=== PATIENT | male | born 1980 | race Caucasian/White ===

== ENCOUNTER 2020-09-05 15:36 | Emergency (ER) | payer BC, OTHER ==
[2020-09-05 16:00] VITALS: BP 128/86; PULSE 88; RESP 18
--- NOTE | 2020-09-05 16:33 | XR ---
EXAMINATION TYPE: XR chest 2V DATE OF EXAM: 09/05/2020 COMPARISON: None INDICATION: Left-sided rib pain TECHNIQUE: Frontal and lateral views of the chest are obtained. FINDINGS: The heart size is normal. The pulmonary vasculature is normal. Very minimal atelectasis may be the costophrenic angle. Lungs otherwise appear clear.. No pneumothor ax is evident. No displaced rib fractures are evident. IMPRESSION: 1. Suggestion of minimal left costophrenic angle atelectasis.
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
== END 2020-09-05 17:00 | disposition home or self-care (01) ==
LOC: EC 15:36
DX: S20.212A Contusion of left front wall of thorax, initial encounter (principal); M94.0 Chondrocostal junction syndrome [Tietze]; V39.40XA Driver of three-wheeled motor vehicle injured in collision with unspecified motor vehicles in traffic accident, initial encounter; Y92.410 Unspecified street and highway as the place of occurrence of the external cause
CPT/HCPCS: 71046; 93005; 99284

== ENCOUNTER 2022-01-11 09:47 | Emergency (ER) | payer OTHER, BC ==
[2022-01-11 09:54] VITALS: BP 117/74; PULSE 73; RESP 20; TEMP 97.5
--- NOTE | 2022-01-11 10:20 | XR ---
EXAMINATION TYPE: XR foot complete 3 views LT DATE OF EXAM: 01/11/2022 Comparison: None Clinical History: 41-year-old male work injury , pain Findings: There may be some mild dorsal soft tissue swelling. Tiny plantar heel spur. No acute fracture, sublux ation, dislocation seen. Impression: No acute osseous abnormality seen.
--- NOTE | 2022-01-11 11:10 | ED ---
Lower Extremity Injury HPI - General Chief Complaint: Extremity Injury, Lower Stated Complaint: [facility] - L. Foot Injury Time Seen by Provider: 01/11/22 10:31 Source: patient, RN notes reviewed Mode of arrival: wheelchair Limitations: no limitations - History of Present Illness Initial Comments: Patient is a 41-year-old male presenting to the emergency room with complaints of pain and swelling in his left foot after a steel rack weighing approximately 100 pounds fell on his foot yesterday. He was wearing steel toe boots during the time of the event. After the injury he went home and elevated his foot and took ibuprofen without any significant improvement in symptoms. He continues to have pain in his left foot with swelling in the mid and forefoot region. He has significant tenderness to his fifth toe with ecchymosis noted to both the fifth toe and base of the great toe. He reports prior to the event he did not have any pain swelling or bruising in his foot. He has a past medical history significant for asthma without recent exacerbation. - Related Data Previous Rx's Medication Instructions Recorded Ibuprofen [Motrin] 800 mg PO Q8H PRN 7 Days #21 tab 01/11/22 Allergies Allergy/AdvReac Type Severity Reaction Status Date / Time Sulfa (Sulfonamide Allergy Anaphylaxis Verified 01/11/22 09:53 Antibiotics) Review of Systems ROS Statement: Those systems with pertinent positive or pertinent negative responses have been documented in the HPI. ROS Other: All systems not noted in ROS Statement are negative. Past Medical History Past Medical History: Asthma History of Any Multi-Drug Resistant Organisms: None Reported Past Surgical History: Orthopedic Surgery Past Psychological History: No Psychological Hx Reported Smoking Status: Never smoker Past Alcohol Use History: Occasional Past Drug Use History: None Reported General Exam Limitations: no limitations General appearance: alert, in no apparent distress Head exam: Present: atraumatic, normocephalic, normal inspection Eye exam: Present: normal appearance, PERRL, EOMI. Absent: scleral icterus, conjunctival injection, periorbital swelling ENT exam: Present: normal exam, mucous membranes moist Neck exam: Present: normal inspection Respiratory exam: Absent: respiratory distress, accessory muscle use Cardiovascular Exam: Present: regular rate GI/Abdominal exam: Absent: distended Left Foot/Toe exam: Present: tenderness, swelling, ecchymosis. Absent: full ROM Neurovascular tendon exam: Present: no vascular compromise Back exam: Present: normal inspection, full ROM Neurological exam: Present: alert, oriented X3, CN II-XII intact Psychiatric exam: Present: normal affect, normal mood Skin exam: Present: other Course Vital Signs 01/11/22 09:51 Temperature 97.5 F L Pulse Rate 73 Respiratory 20 Rate Blood Pressure 117/74 O2 Sat by Pulse 98 Oximetry Procedures - Orthopedic Splinting/Casting Injury #1 Side: left Lower Extremity Injury Location: toe Lower Extremity Immobilizer: post-op shoe Medical Decision Making - Medical Decision Making 41-year-old male presenting to the emergency department at the request of his employer for evaluation for a work-related injury after an apparatus fell on his left foot. X-ray of his left foot completed. No indication for other diagnostic imaging or laboratory studies. Left foot images interpreted by me shows possible fracture to the fifth distal and middle phalange of the left fifth toe with significant soft tissue swelling no other acute osseous abnormalities appreciated. Radiology report also reviewed. Due to fracture of fifth phalanges will place in a surgical shoe and keep off work for 7-10 days with follow-up with [facility] for repeat imaging and further evaluation for return to work status. Surgical shoe applied by me to left foot without complication. Will discharge home in stable condition with ibuprofen to utilize as needed for pain; encouraged elevation ice and maintenance of surgical shoe. Case discussed with Dr. Singer. - Radiology Data Radiology results: report reviewed, image reviewed Disposition Clinical Impression: Dislocation of phalanx of foot, Sprain of foot, left Disposition: HOME SELF-CARE Condition: Stable Instructions (If sedation given, give patient instructions): Toe Fracture (ED), Foot Sprain (ED) Additional Instructions: Please continue conservative management with resting joint when possible, apply ice for 20 minute increments every 2-3 hours, and utilize surgical shoe when ambulating. Elevate joint when possible. Utilize [id number] analgesics of Tylenol or ibuprofen as prescribed as needed for pain. [facility]10 days. Please return to the Emergency Department if symptoms worsen or any other concerns. Prescriptions: Ibuprofen [Motrin] 800 mg PO Q8H PRN 7 Days #21 tab PRN Reason: Pain Is patient prescribed a controlled substance at d/c from ED?: No Referrals: Awa Swain MD [Primary Care Provider] - 1-2 days (Please follow-up with [facility]) Time of Disposition: 11:06
== END 2022-01-11 11:21 | disposition home or self-care (01) ==
LOC: EC 09:47
DX: S93.105A Unspecified dislocation of left toe(s), initial encounter (principal); S93.602A Unspecified sprain of left foot, initial encounter; J45.909 Unspecified asthma, uncomplicated; Z88.2 Allergy status to sulfonamides; W20.8XXA Other cause of strike by thrown, projected or falling object, initial encounter
CPT/HCPCS: 99283

== ENCOUNTER → 2022-01-23 | Outpatient (CLI) | payer OTHER ==
--- NOTE | 2022-01-23 14:15 | XR ---
EXAMINATION TYPE: XR foot complete LT DATE OF EXAM: 01/23/2022 COMPARISON: NONE HISTORY: pain TECHNIQUE: Three views are submitted. FINDINGS: There is a transverse fracture through the middle phalanx fifth digit. Hairline fracture through the distal phalanx fifth digit also suspected and stable from prior exam. No significant callus formation . Remaining osseous structures intact. IMPRESSION: 1. Hairline mildly displaced fractures involving the distal and middle phalanx fifth digit similar to prior exam.
== END | disposition home or self-care (01) ==
LOC: RADXRMAIN 13:45
PROVIDERS: ATTEND Emergency Medicine
DX: S92.352D Displaced fracture of fifth metatarsal bone, left foot, subsequent encounter for fracture with routine healing (principal); S90.32XD Contusion of left foot, subsequent encounter

== ENCOUNTER 2023-07-26 19:08 | Emergency (ER) | payer OTHER ==
[2023-07-26] MEDS ORDERED: DIPH,PERTUS(ACELL)TETVAC-LF 0.5 ML VIAL IM ONE (19:10)
[2023-07-26 19:12] LABS: Glucose,Whole Blood 358 mg/dL (70-110)
[2023-07-26] MEDS ORDERED: KETAMINE 50 MG/ML 10 ML VIAL IV ONE (19:12)
[2023-07-26] MEDS ORDERED: VANCOMYCIN 2,000 MG in SODIUM CHLORIDE 0.9% 500 ML 500 ML IVPB STA (19:19)
[2023-07-26] MEDS ORDERED: PIPERACILLIN-TAZOBACTAM 3.375 GM in SODIUM CHLORIDE 0.9% 100 ML IVPB STA (19:19)
[2023-07-26 19:21] VITALS: TEMP 98.1
[2023-07-26 19:24] LABS: Basophils % (A) 0 %; Eosinophils # (A) 0.1 k/uL (0-0.7); Eosinophils % (A) 1 %; HCT 39.4 % (39.0-53.0); HGB 12.7 gm/dL (13.0-17.5); Lymphocytes # (A) 2.4 k/uL (1.0-4.8); Lymphocytes % (A) 29 %; MCH 29.5 pg (25.0-35.0); MCHC 32.3 g/dL (31.0-37.0); MCV 91.2 fL (80.0-100.0); Mean Platelet Volume 8.5; Monocytes # (A) 0.4 k/uL (0-1.0); Monocytes % (A) 4 %; Neutrophils # (A) 5.4 k/uL (1.3-7.7); Neutrophils % (A) 64 %; Platelet Count 324 k/uL (150-450); RBC 4.32 m/uL (4.30-5.90); RDW 12.7 % (11.5-15.5); WBC 8.4 k/uL (3.8-10.6)
[2023-07-26 19:30] VITALS: BP 179/105; PULSE 112; RESP 19
[2023-07-26 19:32] LABS: INR 0.9 (<1.2); Partial Thromboplastin Time 22.4 sec (22.0-30.0); Prothrombin Time 10.3 sec (10.0-12.5)
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
[2023-07-26 19:42] LABS: ALT 99 U/L (4-49); AST 90 U/L (17-59); African American GFR (CKD) >90 (>60 ml/min/1.73 sqM); Albumin 4.3 g/dL (3.5-5.0); Alkaline Phosphatase 70 U/L (38-126); Anion Gap 11 mmol/L; Blood Urea Nitrogen 10 mg/dL (9-20); Calcium 8.9 mg/dL (8.4-10.2); Carbon Dioxide 22 mmol/L (22-30); Chloride 102 mmol/L (98-107); Glucose 376 mg/dL (74-99); Non-African American GFR(CKD) >90 (>60 ml/min/1.73 sqM); Potassium 4.3 mmol/L (3.5-5.1); Sodium 135 mmol/L (137-145); Total Bilirubin 0.4 mg/dL (0.2-1.3); Total Protein 6.4 g/dL (6.3-8.2)
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
[2023-07-26 20:02] LABS: Alcohol 120 mg/dL
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
[2023-07-26] MEDS ORDERED: VANCOMYCIN IV PER PHARMACY 1 EACH MISC MISCELLANE PRN (20:41)
[2023-07-26] MEDS ORDERED: HYDROmorphone 0.5 MG/0.5 ML SYRINGE IVP STA (20:50)
[2023-07-26 21:14] LABS: Appearance,Urine Clear (Clear); Bilirubin,Urine Negative (Negative); Blood,Urine Negative (Negative); Color,Urine Colorless; Glucose,Urine (UA) 4+ (Negative); Ketones,Urine 1+ (Negative); Leukocyte Esterase,Urine Negative (Negative); Nitrite,Urine Negative (Negative); PH, Urine 5.5 (5.0-8.0); Protein,Urine Negative (Negative); Specific Gravity,Urine 1.035 (1.001-1.035); Urobilinogen,Urine <2.0 mg/dL (<2.0)
[2023-07-26 21:19] LABS: Amphetamine Screen,Urine Not Detected (NotDetected); Barbiturate Screen,Urine Not Detected (NotDetected); Benzodiazepines Screen,Urine Not Detected (NotDetected); Cocaine Screen,Urine Not Detected (NotDetected); Methadone Screen, Urine Not Detected (NotDetected); Opiate Screen,Urine Not Detected (NotDetected); Oxycodone Screen, Urine Not Detected (NotDetected); Phencyclidine Screen,Urine Not Detected (NotDetected); Tricyclic Antidepressant,Urine Not Detected (NotDetected); Urn Cannabinoid Scrn Not Detected (NotDetected)
== END 2023-07-26 21:10 | disposition other institution (70) ==
LOC: EC 19:08
DX: S82.831A Other fracture of upper and lower end of right fibula, initial encounter for closed fracture (principal); S01.01XA Laceration without foreign body of scalp, initial encounter; R40.2410 Glasgow coma scale score 13-15, unspecified time; Z88.2 Allergy status to sulfonamides; V89.2XXA Person injured in unspecified motor-vehicle accident, traffic, initial encounter; Y92.410 Unspecified street and highway as the place of occurrence of the external cause
CPT/HCPCS: 99291; 99152; 27818; 36415; 93005; 86900; 86901; 80053; 84484; 85025; 85610; 85730; 86850; 81003; 80306; 80320; 72170; 73600; 12004; 71045; 72125; 70450; 71260; 74177; Q9967

== ENCOUNTER 2024-09-04 21:47 | Emergency (ER) | payer OTHER ==
[2024-09-04 21:56] VITALS: PULSE 86
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
[2024-09-04] MEDS: LIDOCAINE 4% PATCH TOPICAL ONE (22:39)
[2024-09-04 22:47] VITALS: BP 126/84; RESP 16; TEMP 98
== END 2024-09-04 22:48 | disposition home or self-care (01) ==
LOC: EC 21:47
DX: S40.011A Contusion of right shoulder, initial encounter (principal); Z88.2 Allergy status to sulfonamides; V89.2XXA Person injured in unspecified motor-vehicle accident, traffic, initial encounter; Y92.410 Unspecified street and highway as the place of occurrence of the external cause
CPT/HCPCS: 99284